=== PATIENT | female | born 1940 | race Caucasian/White ===

== ENCOUNTER 2020-02-04 10:00 | Day surgery (SDC) | payer OTHER ==
--- NOTE | 2020-02-04 13:44 | RAD REPORT ---
EXAM DESCRIPTION: US - Breast Core BX w/US Guidance - 02/04/2020 10:36 am CLINICAL HISTORY: ICD N63.10 COMPARISON: MRI December 2019 TECHNIQUE: The risks, benefits alternatives to the procedure were explained to the patient and infor med consent obtained. Skin, subcutaneous and breast tissues anesthetized with lidocaine. Under sonographic guidance, two 14 gauge vacuum assisted core biopsies of the dominant mass within ri ght breast obtained. 2 centimeter core specimens were taken. The material was given to pathology. Subsequently a localizing clip was placed into the mass. Patient experienced no immediate complication IMPRESSION: Vacuum assisted core biopsies of the right breast mass
== END 2020-02-04 14:00 | disposition home or self-care (01) ==
LOC: DS 10:00
PROVIDERS: ATTEND Internal Medicine Gastroenterology
DX: C50.911 Malignant neoplasm of unspecified site of right female breast (principal)
CPT/HCPCS: 19083; 88305

== ENCOUNTER 2020-08-09 06:13 | Day surgery (SDC) | payer OTHER ==
[2020-08-09] MEDS ORDERED: NA CHLORIDE 0.9% 1,000 ML ONE ×2 (06:37→12:10)
[2020-08-09] MEDS ORDERED: CEFAZOLIN/SWI 1gm 1 GM/10 ML SYR ONE (06:38)
[2020-08-09] MEDS ORDERED: CELECOXIB 100 MG CAPSULE ONE (07:28)
[2020-08-09] MEDS ORDERED: ACETAMINOPHEN 500 MG TAB ONE (07:28)
[2020-08-09] MEDS ORDERED: ROCURONIUM 50 MG/5 ML VIAL IV ONE (09:32)
[2020-08-09] MEDS ORDERED: propofoL 200 MG/20 ML VIAL IV ONE (09:32)
[2020-08-09] MEDS ORDERED: MIDAZOLAM HCL 2 MG/2 ML INJ ONE (09:32)
[2020-08-09] MEDS ORDERED: FENTANYL CITR 100 MCG/2 ML ONE ×3 (09:32→12:06)
[2020-08-09] MEDS ORDERED: LIDOCAINE 1% MPF 5 ML VIAL ONE (09:32)
[2020-08-09] MEDS ORDERED: BUPIVACAINE 0.25% PF 10 ML VIAL ONE (09:36)
[2020-08-09] MEDS ORDERED: dexAMETHasone 10 MG/ML VIAL ONE (10:15)
[2020-08-09] MEDS ORDERED: KETOROLAC 30 MG/ML INJ ONE (10:16)
[2020-08-09] MEDS ORDERED: ONDANSETRON 4 MG/2 ML VIAL ONE ×2 (11:27→14:58)
[2020-08-09] MEDS ORDERED: Phenylephrine HCl 10 MG/ML 1 ML VIAL ONE (11:28)
--- NOTE | 2020-08-09 13:22 | P.OP ---
Preoperative diagnosis: RIGHT Breast Cancer Postoperative diagnosis: RIGHT Breast Cancer Primary procedure: RIGHT Modified Radical Mastectomy Anesthesia: GETA + Local Estimated blood loss: ~50cc Specimen: RIGHT Breast and Axillary Contents en bloc Findings: 2 fixed lymph nodes to distal thoracodorsal bundle, 1 proximal long thoraci Complications: None Drain(s): ANDREW drain (10 mm flat ANDREW) Transferred to: Recovery Room Condition: Good
[2020-08-09] MEDS ORDERED: ONDANSETRON 4 MG/2 ML VIAL IV ONE (14:43)
[2020-08-09 15:15] VITALS: O2SAT 97
[2020-08-09 15:19] VITALS: BP 114/62; TEMP 97
--- NOTE | 2020-08-09 23:57 | OP ---
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 However, preoperative imaging showed suspicious lymphadenopathy in the right axilla ry area consistent with locally advanced disease. The patient received neoadjuvant chemotherapy and ultimately was deemed appropriate for operative intervention for modified radical mastectomy. I had a long conversation with the patient regarding the risks, benefits, alternatives of the surgical proc edure including, but not limited to bleeding, infection, damage to surrounding tissue, need for furth er operation or procedure, injury to the nerves controlling the shoulder and the neck, weakness of th e chest, and other unforeseen complications. The patient agreed to proceed. After informed consent was obtained. Preoperative Diagnosis: Right breast cancer. Postoperative Diagnosis: Right breast cancer. Procedure Performed: Right modified radical mastectomy. Anesthesia: General endotracheal plus local with 1 cc of 0.25% Marcaine. Estimated Blood Loss: 50 cc. Specimens: Right breast and axillary contents en bloc. Findings: 1.Firm fixed mass in the right breast inferolateral quadrant corroborating the preoperative findings . 2.Bulky lymphadenopathy in the right axilla. Specifically, there were several lymph nodes, which we re enlarged, firm, and palpable concerning for continued locally advanced breast cancer with the invo lvement of these several lymph nodes. These lymph nodes were in close proximity to the long thoracic nerve as well as the distal aspect of the thoracodorsal neurovascular bundle. Complications: None. Drains: ANDREW drain, which was 10 mm flat ANDREW drain. Disposition: The patient was transferred to recovery room in good condition. Procedure In Detail: After informed consent was obtained as above, the patient was prepped and drape d in usual sterile fashion. After adequate anesthesia was achieved, I demarcated the area of the rig ht breast with a marking pen including the area of tumor involvement to take this ellipse of skin out including the nipple-areolar complex. I demarcated the area and marked the lateral, superior, infer ior, and medial margins of the dissection with marking pen preoperatively. The skin was then incised following my markings of the elliptical periareolar ellipse incision down through subcutaneous tissu es with a 10 blade. Electrocautery was used to dissect down to subcutaneous fat, following Brady's ligament on the superior flap was created using electrocautery to the superior margin, which was the clavicle. I then continued dissection medially to the approximately 0.5 cm proximal to the sternal b order at the medial edge. I then dissected the inferior flap down to almost the inframammary crease. At this point, the breast was then removed including the prepectoral fascia off the pectoralis anita r muscle. I ligated any bleeding vessels using a combination of electrocautery as well as small clip s. At this point, I dissected the breast off the pectoralis major. At this point, I dissected later ally down to the latissimus inferolaterally and palpated multiple enlarged lymph nodes as described. These were predominantly along the chest wall in close apposition to the long thoracic nerve superio rly and distally a large bulky lymphadenopathy near the thoracodorsal neurovascular bundle as it curv ed posteriorly. I began first by opening the axilla by taking down the clavipectoral fascia superome dially along the edge of the pectoralis major muscle to expose the pectoralis minor muscle. I then d issected down following the same plane superiorly and along the edge of the pectoralis minor muscle u ntil I exposed the axillary vein superiorly. At this point, I continued a careful dissection and not ed the medial pectoral nerve making a C type curvature back toward the pectoralis major in the prepec anneliese plane. At this point, I dissected it bluntly away from our dissection field and spared it thro ughout the procedure. I then continued by dissecting the inferior aspect of the axillary vein. As I dissected along the axillary vein, several tributaries were encountered. These were dissected and s keletonized down inferiorly as well as discovery of the thoracodorsal neurovascular bundle going infe rior posteriorly slightly with an inferiorly curve. As I dissected down the axillary contents in a p yramidal fashion, I encountered a large bulky lymph node on the chest wall near the course of the shelley g thoracic. I performed a meticulous dissection and removed this lymph node off the long thoracic ne rve with careful blunt and sharp dissection sparing the long thoracic nerve. After the plane was cre ated and the lymph node was mobilized, I placed clips on the lymphatic channels feeding this lymph no de and ligated it at this point. I then passed this lymph node off as a separate specimen. I then c ontinued dissection down inferiorly following along the serratus medially and along the latissimus la terally. I dissected down to the subscapularis area and mobilized the bulky lymphadenopathy of the a xillary contents. I continued to sweep this down until I encountered the another large lymph node, w hich was in close apposition to the thoracodorsal neurovascular bundle. It was posterolateral to the course of the thoracodorsal neurovascular bundle. I was able to bluntly dissect this off gently ini jeriy and then used Metzenbaum scissors to remove it from the neurovascular bundle sparing it at thi s point. The various 2 other tributaries from the axillary vein were ligated at this point. I was a ble to spare an additional tributary from the axillary vein, which traveled medially. At this point, I removed the axillary contents en bloc with the breast mastectomy specimen. I then placed to allison ng sutures medially and superiorly on the breast to clarke it. I believe the short stitch was medial a nd the long was superior on this particular orientation. At this point, the specimen was passed off. I irrigated the cavity copiously and inspected the area for proper hemostasis, was achieved without any additional hemostatic maneuvers. At this point, all lymphatic channels appear to be clipped kyle ropriately as I use clips to ligate the various lymphatic channels as I encounter them and I left fid ucial marking clips in place near the bulky lymphadenopathy. At this point, I placed a drain inferol aterally, which was a 10-[place] flat ANDREW drain and secured to the skin with a 3-0 nylon suture and marlin chelsy it in the axillary space curving up over the pectoralis major muscle as well. At this point, the skin was reapproximated using 3-0 Vicryl sutures in an interrupted fashion and the skin was closed u sing a 4-0 Monocryl in a running fashion and Dermabond placed over the top. The patient tolerated th e procedure well without evidence of complication, transferred to PACU in good condition. All counts were correct at the end of the case. TK/MODL Voice ID: [id number] Report ID: [id number]
== END 2020-08-09 15:54 | disposition home or self-care (01) ==
LOC: OR 06:13
PROVIDERS: ATTEND Surgery
PROC: 0HBW0ZX Excision of Right Nipple, Open Approach, Diagnostic (ICD-10-PCS; 2020-08-09)
PROC: 0HTT0ZZ Resection of Right Breast, Open Approach (ICD-10-PCS; principal; 2020-08-09 08:30)
DX: C50.911 Malignant neoplasm of unspecified site of right female breast (principal); C77.3 Secondary and unspecified malignant neoplasm of axilla and upper limb lymph nodes; Z20.822 Contact with and (suspected) exposure to COVID-19; Z17.0 Estrogen receptor positive status [ER+]
CPT/HCPCS: 19307; 82947 ×2; 88305; 88309; U0002; J2704; J2370; J3010 ×3; J1100; J0690; J7030 ×2; J2405 ×3; 88307; J2250